=== PATIENT | female | born 1935 | race Caucasian/White ===

== ENCOUNTER → 2020-03-07 | Outpatient (CLI) | payer MEDICARE ==
[~2020-03-07] MED LIST: COUMADIN 22.5 MG/TAB PO; COUMADIN 3MG3 MG/TAB PO; KLOR-CON SPRIN10 MEQ PO; LANOXIN 0.25M0.25 MG PO; LASIX 20MG TABL20 MG PO; LOFIBRA160 MG PO; LOPRESSOR 225 MG/TAB PO; LOPRESSOR 550 MG/TAB PO; OMNICEF 300MG300 MG PO; TYLENOL 325MG325 MG PO
[2020-03-07 16:36] LABS: COLLECTION METHOD CLEAN CATCH
[2020-03-07 17:03] LABS: BUDDING YEAST Present /hpf; MUCOUS Present /lpf; PH 6 (5-8); SQUAMOUS EPITHELIAL 0-2 /hpf; URINE APPEARANCE Cloudy; URINE BACTERIA Moderate /hpf; URINE BILIRUBIN Negative (NEGATIVE); URINE BLOOD 1+ (NEGATIVE); URINE CALCIUM OXALATE CRYSTAL Present /hpf; URINE COLOR Amber; URINE GLUCOSE Negative (NEGATIVE); URINE KETONE Negative (NEGATIVE); URINE LEUKOCYTE ESTERASE 3+ (NEGATIVE); URINE NITRATE Negative (NEGATIVE); URINE PROTEIN(semi-quant) 1+ (NEGATIVE); URINE RBC 20-50 /hpf; URINE UROBILINOGEN >=4.0 mg/dL (NEGATIVE)
== END ==
LOC: ZCOL.LAB 15:59
PROVIDERS: Emergency Medicine
DX: N39.0 Urinary tract infection, site not specified (principal)

== ENCOUNTER → 2020-05-15 | Outpatient (CLI) | payer MEDICARE ==
[2020-05-15 13:19] LABS: COLLECTION METHOD CATHETER
[2020-05-15 13:32] LABS: MUCOUS Present /lpf; PH 7 (5-8); SQUAMOUS EPITHELIAL None Seen /hpf; URINE APPEARANCE Turbid; URINE BACTERIA Rare /hpf; URINE BILIRUBIN Negative (NEGATIVE); URINE BLOOD 1+ (NEGATIVE); URINE CALCIUM OXALATE CRYSTAL Present /hpf; URINE COLOR Yellow; URINE GLUCOSE Negative (NEGATIVE); URINE KETONE Negative (NEGATIVE); URINE LEUKOCYTE ESTERASE 1+ (NEGATIVE); URINE NITRATE Positive (NEGATIVE); URINE PROTEIN(semi-quant) Negative (NEGATIVE); URINE UROBILINOGEN Negative (NEGATIVE)
== END ==
LOC: ZCOL.LAB 13:10
PROVIDERS: Family Medicine
DX: N39.0 Urinary tract infection, site not specified (principal)

== ENCOUNTER → 2020-06-18 | Outpatient (CLI) | payer MEDICARE ==
[2020-06-18 09:59] LABS: BASO % 0.2 % (0.0-2.0); EOS # 0.4 (0.0-0.7); EOS % 4.1 % (0-4.0); GRAN # 5.4 (1.4-6.5); GRAN % 58.8 % (42.2-75.2); HEMATOCRIT 40.1 % (37.0-47.0); HEMOGLOBIN 12.9 g/dl (12.5-16.0); LYMPH # 2.3 (1.2-3.4); LYMPH % 25.1 % (20.0-51.0); MEAN CELL VOLUME 97 fl (80.0-100.0); MEAN CORPUSCULAR HEMOGLOBIN 31 pg (27.0-31.0); MEAN CORPUSCULAR HGB CONC 32 g/dl (33.0-37.0); MEAN PLATELET VOLUME 10.8 fl (7.4-10.4); MONO # 1.1 (0.1-0.6); MONO % 11.5 % (1.7-9.3); PLATELET COUNT 270 K/mm3 (130-400); RED BLOOD COUNT 4.13 M/mm3 (4.10-5.30); REDCELL DISTRIBUTION WIDTH-CV 13.8 % (11.5-14.5)
== END ==
LOC: ZCOL.LAB 09:44
PROVIDERS: Family Medicine
DX: I69.354 Hemiplegia and hemiparesis following cerebral infarction affecting left non-dominant side (principal); I48.20 Chronic atrial fibrillation, unspecified

== ENCOUNTER → 2020-06-26 | Outpatient (CLI) | payer MEDICARE ==
[2020-06-26 21:48] LABS: COLLECTION METHOD CATHETER
[2020-06-26 22:06] LABS: MUCOUS Present /lpf; PH 7 (5-8); URINE APPEARANCE Turbid; URINE BACTERIA Rare /hpf; URINE BILIRUBIN Negative (NEGATIVE); URINE BLOOD 2+ (NEGATIVE); URINE COLOR Amber; URINE GLUCOSE Negative (NEGATIVE); URINE KETONE Negative (NEGATIVE); URINE LEUKOCYTE ESTERASE 2+ (NEGATIVE); URINE NITRATE Negative (NEGATIVE); URINE PROTEIN(semi-quant) 2+ (NEGATIVE); URINE RBC >50 /hpf; URINE UROBILINOGEN Negative (NEGATIVE)
== END ==
LOC: ZCOL.LAB 20:04
PROVIDERS: Family Medicine
DX: N39.0 Urinary tract infection, site not specified (principal)

== ENCOUNTER → 2020-10-08 | Outpatient (CLI) | payer MEDICARE ==
[2020-10-08 14:13] LABS: CALCIUM 9.4 mg/dL (8.4-10.2); CREATININE, serum 0.47 (0.52-1.25); POTASSIUM 4.3 mmol/L (3.4-5.0)
== END ==
LOC: ZCOL.LAB 14:02
PROVIDERS: Family Medicine
DX: I69.354 Hemiplegia and hemiparesis following cerebral infarction affecting left non-dominant side (principal)

== ENCOUNTER → 2020-12-25 | Outpatient (REF) | LOC: ZCOL.LAB 03:14 | DX: Z01.89 Encounter for other specified special examinations (principal) ==

== ENCOUNTER 2021-01-03 21:17 | Inpatient (IN) | payer MEDICARE ==
[~2021-01-03] VITALS: Ht 182.9 cm; Wt 72.7 kg
[~2021-01-03 21:17] MED LIST changes: -KLOR-CON SPRIN10 MEQ PO; +KLOR-CON SPRINK8 MEQ PO
[2021-01-03 22:05] LABS: HEMOGLOBIN 11.6 g/dl (12.5-16.0); MEAN CELL VOLUME 99 fl (80.0-100.0); MEAN CORPUSCULAR HEMOGLOBIN 33 pg (27.0-31.0); MEAN CORPUSCULAR HGB CONC 33 g/dl (33.0-37.0); MEAN PLATELET VOLUME 10.9 fl (7.4-10.4); PLATELET COUNT 362 K/mm3 (130-400); RED BLOOD COUNT 3.52 M/mm3 (4.10-5.30); REDCELL DISTRIBUTION WIDTH-CV 15.4 % (11.5-14.5)
[2021-01-03 22:08] LABS: HEMATOCRIT 34.9 % (37.0-47.0)
[2021-01-03 22:10] LABS: ALANINE AMINOTRANSFERASE 83 U/L (4-34); ALBUMIN 2.8 gm/dL (3.5-5.0); ALKALINE PHOSPHATASE 70 U/L (50-136); ANION GAP 4 mmol/L (7-16); AST,SGOT 33 U/L (15-37); BILIRUBIN,TOTAL 2.5 mg/dL (0.0-1.0); BLOOD UREA NITROGEN 14 mg/dL (7-17); CARBON DIOXIDE 30 mmol/L (22-30); CHLORIDE 97 mmol/L (98-107); GLUCOSE 90 mg/dL (74-106); POTASSIUM 4.8 mmol/L (3.4-5.0); SODIUM 132 mmol/L (137-145); TOTAL PROTEIN 6.5 gm/dL (6.4-8.2)
[2021-01-03 22:22] LABS: TROPONIN-I < 0.012 ng/mL (0.000-0.035)
[2021-01-03 22:27] LABS: ANISOCYTOSIS 1+; BAND 5 % (0-10); HYPOCHROMIA 1+; LYMPHOCYTE 6 % (20.0-51.0); NEUTROPHILS 80 % (42.0-75.2); POIKILOCYTOSIS 1+
[2021-01-03 22:28] LABS: OVALOCYTES 1+; PLATELET ESTIMATE NORMAL (NORMAL); STOMATOCYTE 1+
[2021-01-03] MEDS ORDERED: EFFEXOR XR37.5 MG/CA PO (23:06)
[2021-01-03] MEDS ORDERED: ONE-A-DAY ESSE1 EACH PO (23:07)
[2021-01-03] MEDS ORDERED: REMERON 15M15 MG/TA1 PO (23:09)
[2021-01-03] MEDS ORDERED: XARELTO15 MG PO (23:10)
[2021-01-03] MEDS ORDERED: BACTRIM DS 8001 TAB PO (23:10)
[2021-01-03] MEDS ORDERED: HIPREX PO (23:11)
[2021-01-03 23:16] LABS: COLLECTION METHOD CATHETER
[2021-01-03 23:24] LABS: AMORPHOUS CRYSTAL Present /uL; MUCOUS Present /lpf; PH 7 (5-8); URINE APPEARANCE Cloudy; URINE BACTERIA Moderate /hpf; URINE BILIRUBIN Negative (NEGATIVE); URINE BLOOD Negative (NEGATIVE); URINE COLOR Amber; URINE GLUCOSE Negative (NEGATIVE); URINE KETONE Negative (NEGATIVE); URINE LEUKOCYTE ESTERASE 2+ (NEGATIVE); URINE NITRATE Negative (NEGATIVE); URINE PROTEIN(semi-quant) 1+ (NEGATIVE); URINE UROBILINOGEN >=4.0 mg/dL (NEGATIVE)
--- NOTE | 2021-01-04 00:48 | NUR ---
RECEIVED REPORT FROM ED RNGEMA. WAITING FOR ARRIVAL TO ROOM 308.
[2021-01-04 01:32] VITALS: BP 103/62; PULSE 101; TEMP 99
--- NOTE | 2021-01-04 01:35 | NUR ---
ADMIT TO ROOM 308 FROM ER VIA CART/ACCOMPANIED BY PCT. PATIENT DOES NOT ANSWER QUESTIONS REGARDING NAME/AGE/. DOES NOT FOLLOW COMMANDS AT THIS TIME. OBSERVED NO VOLUNTARY MOVEMENT OF BLE OR LUE. OBSERVED SMALL AMOUNT SWELLING TO LEFT HAND. ON ROOM AIR. VS TAKEN, SEE [facility] FOR VS RESULTS. ALAMO TO DD IN PLACE WITH CLEAR ORANGE COLORED URINE OUTPUT OBSERVED. OBSERVED SMALL DIME SIZE SEMI CIRCULAR SHAPED OPEN AREA TO COCCYX AREA WITH BLANCHING OBSERVED TO SURROUNDING TISSUE OF SKIN WOUND, OBSERVED DEEPA SOLES OF FEET VERY DRY WITH SKIN INTACT. EGG CRATE OVERLAY ON BED PRIOR TO PATIENT TRANSFERED FROM ER CART TO ROOM BED. OBSERVED PATIENT REQUIRED MAX ASSIST X2 WITH TURNS FROM SIDE TO SIDE AND WHEN REPOSITIONED UP IN BED. BREATHING OBSERVED NONLABORED AND EVEN. OBSERVED SCANT AMOUNT OF BLE NON PITTING SWELLING. DEEPA HEELS ELEVATED AT THIS THIS TIME.
--- NOTE | 2021-01-04 01:48 | NUR ---
OBSERVED IVF INFUSING PER GRAVITY TO RAC IV SITE WITH BLOODY DRAINAGE TO IV SITE UNDER TEGADERM IV DRSG.
--- NOTE | 2021-01-04 02:26 | NUR ---
IVF RATE FROM 250 ML/HR SET BY ER, CHANGED TO 100 ML/HR PER PROVIDER ORDER.
[2021-01-04 04:07] VITALS: BP 92/50; PULSE 103; TEMP 99.3
--- NOTE | 2021-01-04 04:27 | NUR ---
CERTIFIED LOW VISION THERAPIST HOSP PROVIDER INFORMED OF RECENT VS AND PATIENT GOING FOR CT HEAD AT THIS TIME. NO NEW ORDERS ENTERED AT TIME OF CALL TO PROVIDER.
--- NOTE | 2021-01-04 04:52 | NUR ---
PATIENT BACK IN ROOM FROM RADIOLOGY.
--- NOTE | 2021-01-04 05:21 | NUR ---
INSTRUCTED BY HOSP PROVIDER, SPOKE WITH ME STAFF TO HAVE PATIENT'S MED LIST FAXED TO [facility] TO CONFIRM PATIENT IS CURRENTLY TAKING. WAITING ON FAX.
[2021-01-04] MEDS ORDERED: DULCOLAX S10 MG/SUPP RC (05:44)
[2021-01-04] MEDS ORDERED: CORRECTIVE LAXAT5 MG PO (05:44)
--- NOTE | 2021-01-04 06:02 | NUR ---
SPOKE WITH PATIENT'S DAUGHTER, NILAY YEBOAH/MARC TO OBTAIN PHONE CONSENT FOR ABD/PELV CT W CONTRAST AND PE CHEST WITH CONTRAST TO BE PERFORMED ON PATIENT. PHONE CONSENT GIVEN FROM DAUGHTER, NILAY YEBOAH, WITH REYNALDO DESAI SECOND WITNESS, SEE ALSO CONSENT FORM. ALSO CONFIRMED PATIENT'S DNR STATUS TO CONTINUE DURING HOSPITAL STAY, AT [place] ([facility]). INFORMED HOSP PROVIDER OF PERMISSION OBTAINED AND OF CONTINUATION OF DNR STATUS DURING HOSP STAY.
--- NOTE | 2021-01-04 06:24 | NUR ---
RADIOLOGY CALLED, REPORTING IV SITE NOT FUNCTIONING WELL, OBSERVED BLOOD BACKED UP IN IV LOOP, REPLACED IV LOOP EXTENSION, FLUSHED WITH SALINE WITH NO PROBLEMS AND SECURED WITH SMALL IV DRSG.
[2021-01-04 07:15] VITALS: BP 109/45; PULSE 103; TEMP 99.4
--- NOTE | 2021-01-04 07:50 | NUR ---
CHANGE OF SHIFT REPORT GIVEN TO DAY SHIFT NURSE
--- NOTE | 2021-01-04 08:26 | NUR ---
Pt napping upon entry, combative and hitting, attempted to give Pt medications, refused. Shift assessments complete, left Pt call light in reach, bed in lowest position
[2021-01-04 08:56] LABS: HEMOGLOBIN 11.4 g/dl (12.5-16.0); MEAN CELL VOLUME 100 fl (80.0-100.0); MEAN CORPUSCULAR HEMOGLOBIN 33 pg (27.0-31.0); MEAN CORPUSCULAR HGB CONC 33 g/dl (33.0-37.0); MEAN PLATELET VOLUME 10.9 fl (7.4-10.4); PLATELET COUNT 331 K/mm3 (130-400); RED BLOOD COUNT 3.44 M/mm3 (4.10-5.30); REDCELL DISTRIBUTION WIDTH-CV 15.4 % (11.5-14.5)
[2021-01-04 09:08] LABS: HEMATOCRIT 34.4 % (37.0-47.0)
[2021-01-04 09:10] LABS: ALBUMIN 2.5 gm/dL (3.5-5.0); BILIRUBIN,TOTAL 2.5 mg/dL (0.0-1.0); CALCIUM 7.8 mg/dL (8.4-10.2); CREATININE, serum 0.6 (0.52-1.25); POTASSIUM 4.1 mmol/L (3.4-5.0)
[2021-01-04 09:39] LABS: EOSINOPHIL 2 % (0-4); LYMPHOCYTE 6 % (20.0-51.0); NEUTROPHILS 89 % (42.0-75.2); PLATELET ESTIMATE NORMAL (NORMAL)
--- NOTE | 2021-01-04 11:27 | NUR ---
ROBERT met with patient and Legal Guardian and MARC Gonzalez (dtr). Alternate contact is Riccardo Cali . Patient rsides at [facility] and uses a wheelchair for mobility and does not walk. Patient is reports to have PCP Dr. James and medications are taken care of through [facility]. Patient deoes not have any other DME use. Patient is reported to not like to talk. Transportation is provided by the care facility. Will continue to support for DC needs if any arise.
[2021-01-04 11:36] VITALS: BP 112/65; PULSE 105; TEMP 99.9
[2021-01-04 16:15] VITALS: BP 95/53; PULSE 81; TEMP 98.1
[2021-01-04 19:17] VITALS: BP 92/51; PULSE 93; TEMP 99.1
--- NOTE | 2021-01-04 20:16 | NUR ---
PATIENT WAS RECEIVED IN BED SLEEPY,DUE MEDS GIVEN,ASSESSMENT DONE.IVF DRIPPING WELL,ON RA.DENIES PAIN.NO OTHER NEEDS AT THIS TIME
[2021-01-05 00:50] VITALS: BP 113/69; PULSE 74; TEMP 97.3
[2021-01-05 04:55] VITALS: BP 130/64; PULSE 105; TEMP 97.9
--- NOTE | 2021-01-05 04:56 | NUR ---
PATIENT HAS BEEN UP MOST OF THE TIME.DENIES PAIN.NO NEW DEVELOPMENT NEUROLOGICALLY.PT HAS A ALAMO IN PLACE,ON IVFS.DENIES PAIN.NO OTHER NEEDS AT THIS TIME.
--- NOTE | 2021-01-05 05:45 | NUR ---
PATIENT BG WAS 64L APPLE JUICE GIVEN.PATIENT HAS NO SIGNS OF HYPOGLYCEMIA.
--- NOTE | 2021-01-05 05:49 | NUR ---
BLOOD SUGAR RECHECK WAS 80
[2021-01-05 06:42] LABS: HEMATOCRIT 37.5 % (37.0-47.0); HEMOGLOBIN 12.2 g/dl (12.5-16.0); MEAN CELL VOLUME 101 fl (80.0-100.0); MEAN CORPUSCULAR HEMOGLOBIN 33 pg (27.0-31.0); MEAN CORPUSCULAR HGB CONC 33 g/dl (33.0-37.0); MEAN PLATELET VOLUME 10.5 fl (7.4-10.4); PLATELET COUNT 403 K/mm3 (130-400); REDCELL DISTRIBUTION WIDTH-CV 15.7 % (11.5-14.5)
[2021-01-05 06:54] LABS: ALBUMIN 2.7 gm/dL (3.5-5.0); BILIRUBIN,TOTAL 2.2 mg/dL (0.0-1.0); CREATININE, serum 0.58 (0.52-1.25); MAGNESIUM 1.9 mg/dL (1.6-2.3); POTASSIUM 3.7 mmol/L (3.4-5.0); TOTAL PROTEIN 6.2 gm/dL (6.4-8.2)
[2021-01-05 07:28] VITALS: BP 113/48; PULSE 85; TEMP 97.8
[2021-01-05 08:01] LABS: EOSINOPHIL 2 % (0-4); LYMPHOCYTE 2 % (20.0-51.0); MYELOCYTE 1 % (0-0); NEUTROPHILS 89 % (42.0-75.2); PLATELET ESTIMATE INCREASED (NORMAL)
[2021-01-05 08:02] LABS: HYPOCHROMIA 2+
--- NOTE | 2021-01-05 10:17 | NUR ---
Pt sleeping upon entry, hard to wake, medications not given Pt. Assessment completed as much as possible and documented, per family request Pt left to sleep.
[2021-01-05 11:30] VITALS: BP 109/55; PULSE 94; TEMP 98.9
[2021-01-05 16:28] VITALS: BP 117/60; PULSE 76; TEMP 97.4
--- NOTE | 2021-01-05 18:00 | NUR ---
Pt sleeping today, has been very hard to wake, will open eyes when prompted then falls back asleep quickly. Pt not noticably in pain. VS have remained stable.
[2021-01-05 19:13] VITALS: BP 119/57; PULSE 83; TEMP 97.7
--- NOTE | 2021-01-05 19:54 | NUR ---
Patient sleeping/snoring upon enter the room. Patient opens eyes with verbal and tactile stimulation, but falls back asleep immediately. Unable to give meds due to sleepiness. 5% Dextrose and 0.9% NS IVF running at 75ml/hr. Patient appears comfortable. No s/s of pain or discomfort. Call light within reach. Will continue to monitor.
[2021-01-06 00:38] VITALS: BP 143/57; PULSE 91; TEMP 97.6
[2021-01-06 04:22] VITALS: BP 92/46; PULSE 82; TEMP 98.2
[2021-01-06 05:02] VITALS: BP 101/47
--- NOTE | 2021-01-06 06:03 | NUR ---
Patient very drowsy and lethargic. Has been sleeping all night. Very hard to awake. Hasn't been eating or drinking all night. Call light within reach. Will give report to day shift nurse.
[2021-01-06 06:26] LABS: HEMATOCRIT 37.4 % (37.0-47.0); HEMOGLOBIN 12.4 g/dl (12.5-16.0); MEAN CELL VOLUME 100 fl (80.0-100.0); MEAN CORPUSCULAR HEMOGLOBIN 33 pg (27.0-31.0); MEAN CORPUSCULAR HGB CONC 33 g/dl (33.0-37.0); MEAN PLATELET VOLUME 10.1 fl (7.4-10.4); PLATELET COUNT 460 K/mm3 (130-400); RED BLOOD COUNT 3.73 M/mm3 (4.10-5.30); REDCELL DISTRIBUTION WIDTH-CV 15.8 % (11.5-14.5)
[2021-01-06 06:38] LABS: ALBUMIN 2.3 gm/dL (3.5-5.0); BILIRUBIN,TOTAL 1.5 mg/dL (0.0-1.0); CALCIUM 7.9 mg/dL (8.4-10.2); CREATININE, serum 0.49 (0.52-1.25); POTASSIUM 3.3 mmol/L (3.4-5.0)
[2021-01-06 07:20] LABS: EOSINOPHIL 3 % (0-4); LYMPHOCYTE 8 % (20.0-51.0); METAMYELOCYTE 3 % (0-0); MYELOCYTE 1 % (0-0); NEUTROPHILS 82 % (42.0-75.2)
[2021-01-06 07:21] LABS: PLATELET ESTIMATE INCREASED (NORMAL)
[2021-01-06 07:22] LABS: HYPOCHROMIA 1+
[2021-01-06 07:23] LABS: SPHEROCYTE 1+
--- NOTE | 2021-01-06 08:30 | NUR ---
PT DOES NOT RESPOND TO VERBAL STIMULI, WILL YELL OUT "LEAVE ME ALONE" WHEN TOUCHED; DOES NOT INTERACT BEYOND THIS. UNABLE TO GIVE ORAL MEDICATIONS D/T PT LOC.
[2021-01-06 08:31] VITALS: BP 122/57; PULSE 71; TEMP 97.3
--- NOTE | 2021-01-06 10:58 | NUR ---
I met with daughter and guardian Maria Ines Ramirez, this morning along with Dr Woodruff. Maria Ines reports that her mother has been declining at [facility] over the last few months. She is currently not eating or drinking, not taking her oral medications, and will only occasionally give a simiple verbal response. We will have a family meeting call this afternoon after 2pm to talk with co-guardian, Aneudy Cali, to finalize goals of care. We did talk about the concern that Kisha is not observationally improving in her status, despite appropriate antibiotics, IV fluids, and gentle support. Pt is a DNR at this time and was on hospice about 1 year ago when she had her stroke when she was not expected to live even a week. She did spend some time after coming off hospice at [facility] here but was resistant to therapy and eventually was placed at [facility] where she has remained until now. Daughter states that she and her brother must make this decision together but that she has requested we contact [facility] to express interest in their facility and will reach a final decision after the family meeting today. Referral was sent to [facility] and voicemail left for Helen admission screener. Support was provided.
--- NOTE | 2021-01-06 12:27 | NUR ---
PT NOT FOLLOWING COMMANDS FOR NEURO CHECK BUT PT GRABBED MY ARM TO SHOVE ME AWAY WHEN ASKING TO TAVERN CAR ATTENDANT FINGERS. TAVERN CAR ATTENDANT STRONG. PT MOVES ARMS INDEPENDENTLY ON BED BUT NOT TO COMMANDS, PT ALERT AND SAYING "DON'T DO ANYTHING TO ME, LEAVE ME ALONE".
--- NOTE | 2021-01-06 12:30 | NUR ---
PT REFUSED BLOOD SUGAR, THREATENED TO BE COMBATIVE. PT ALSO REFUSED PULSE OX AND THREW IT AT TECH
[2021-01-06 13:01] VITALS: BP 119/78; TEMP 97.7
--- NOTE | 2021-01-06 13:25 | NUR ---
A palliative care consult was ordered. ROBERT staffed with palliative care nurse, Jade. The patient's daughter, Maria Ines Gonzalez and son, Aneudy Cali, are the patient's co-guardians and co-conservators. Maria Ines is in the patient's room. Maria Ines is leaning towards hospice at the [facility], but no decisions have been made until a 1400 family meeting with the patient's son, Aneudy, on speaker phone. Jade contacted and faxed a referral to Helen at the [facility]. Helen is able to take the patient tomorrow, if the family does want to pursue hospice. The patient resides at [facility]. ROBERT notified and faxed updates to Alexis at [facility]. Alexis emailed ROBERT the documents they have on file for the guardianship. ROBERT placed the documents in the patient's chart. ROBERT met with the patient's daughter, Maria Ines, to address the guardianship. Maria Ines reports that she has more guardianship paperwork she will email to ROBERT. She states that they may also have a DPOA-HC for the patient and will try and find it and email to ROBERT. ROBERT received the guardianship paperwork, via email. ROBERT placed it in the patient's chart.
--- NOTE | 2021-01-06 15:36 | NUR ---
Family meeting held with Dr Woodruff, Whitney Dickens. social service agency director, Maria Ines Ramirez, and Jade Contreras RN in person and with Aneudy Cali, son, by phone. Dr Woodruff discussed Kisha's clinical status and goals of care were discussed with both Maria Ines and Aneudy agreeing that hospice care at [facility] is what they believe that their mother would want. This is what Dr Woodruff would feel is quite appropriate in this circumstance. Verification of guardianship ability to make this decision was made by Whitney Amaya with the Guardianship Board. We will plan on transfer to [facility] at 11am tomorrow after a discharge covid test is reported. This was also discussed with Helen From [facility] and she will reach out to family. Comfort quilt was provided to patient/daughter with explanation.
--- NOTE | 2021-01-06 15:44 | NUR ---
NIKI INFORMED ME OF PT STATUS CHANGED TO COMFORT CARE. CALLED MARY FRAZIER IF PT WAS STILL CONTINUING VITALS, BS CHECKS, ANTIBIOTICS AND POTASSIUM. SHE CONFIRMED WE WERE CONTINUING ANTIBIOTICS AND DOING BS AND VITALS Q12H. TALKED TO DR CUELLAR ABOUT POTASSIUM AND HE SAID WE COULD DC.
--- NOTE | 2021-01-06 15:54 | NUR ---
ROBERT contacted Brit at [facility] to inquire if the co-guardians would need to go to court to place the patient on comfort measures. Brit reports that as long as a doctor orders it, they would not have to go to court. ROBERT attended the family meeting with the patient's daughter/co-guardian, Maria Ines. The patient's son/co-guardian, Tony, was also on speaker phone. Also present was the hospitalist and palliative care nurse, Jade. The hospitalist discussed the patient's prognosis and hospice in the home, correction, and hospice house. Maria Ines and Tony would like to pursue hospice at the hospice house. Jade informed them how the hospice house can take the patient tomorrow morning. Maria Ines and Tony were agreeable to this. Jade planned on notifying Helen at the hospice house of the family's decision. ROBERT updated Alexis at [facility].
--- NOTE | 2021-01-06 18:04 | NUR ---
Patient sleeping in bed, resting after treatment for pain. Compound Rx ordered for patient delivered and pharmacy notified to make patient label for inpat scanning purposes. Patient has been encouraged to eat and meal trays have been ordered, however she sends them back as they are delivered. She states she get nauseated with eating. Ondansatron given earlier for anticipatory nausea, however patient only ate peanut butter crackers and orange juice. No needs or c/o at this time.
--- NOTE | 2021-01-06 18:13 | NUR ---
Patient resting soundly in bed, she had time of alertness this afternoon for appox 3 hrs while daughter was here. She ate ice cream but refused any lunch. Consult had between family and palliative care with decision to transfer patient to hospice house on 01/07/21. Modified care ordered noted. Patient has n/c at this time.
--- NOTE | 2021-01-06 19:05 | NUR ---
Received report from Bebe. Patient asleep. Bed alarm on.
[2021-01-06 20:46] VITALS: BP 125/65; PULSE 90; TEMP 97.8
--- NOTE | 2021-01-07 05:28 | NUR ---
Patient had been mostly sleepy. She would wake up if I try to fix her tele leads and then she would be aggressive by trying to hit me and would say "get out of here".
[2021-01-07 07:54] VITALS: BP 131/65; PULSE 85; TEMP 97.7
[2021-01-07] MEDS ORDERED: ROXANOL 20MG20 MG/ML SL (08:42)
[2021-01-07] MEDS ORDERED: ATIVAN 0.50.5 MG/TAB PO (08:44)
[2021-01-07] MEDS ORDERED: PHENERGAN25 MG RC (08:44)
[2021-01-07] MEDS ORDERED: REFRESH TEARS 330 ML OP (08:46)
[2021-01-07] MEDS ORDERED: TRANSDERM-0.5 MG/21 TD (08:48)
--- NOTE | 2021-01-07 08:51 | NUR ---
ALERT ON ENTERING ROOM, NONVERBAL. PATIENT RESPIRATORY PATTERN NOTED TO HAVE PERIODS OF APNEA 5-7 SECONDS IN LENGTH, HOWEVER PATTER DOES NOT APPEAR TO BE SOUMYA LR. ULCER ON COCCYX DRESSED. mOUTH CARE GIVEN. WILL TRANSFER TO HOSPICE HOUSE ON 01/07/21.
--- NOTE | 2021-01-07 08:58 | NUR ---
report called to nurse at [facility].
[2021-01-07 09:39] VITALS: BP 131/65; PULSE 85; TEMP 97.7
--- NOTE | 2021-01-07 10:04 | NUR ---
LEAKING FROM CATHETER NOTED; CATHETER FLUSHED UP AND NOTED TO BE PATENT. EASILY ADVANCES UP AND EASILY ADJUSTED. 3ML ADDED TO BALLOON TO PREVENT LEAKAGE.
--- NOTE | 2021-01-07 10:26 | NUR ---
Pt's daughter has just arrived to the hospital. pt has been awake and looking around but offers no verbal responses. Plan for discharge to [facility] today for 1130 admission there. Support provided
--- NOTE | 2021-01-07 10:43 | NUR ---
ROBERT contacted Nadeem at [facility]. Nadeem reports that they are able to take the patient today and that they just need the patient's COVID results and guardianship paperwork. ROBERT faxed both documents to [facility]. Nadeem reports that a 1130 [employer]els[employer] picker would work for them. ROBERT contacted and updated the patient's daughter, Maria Ines. She was agreeable to this. The patient is to discharge today, 01/07, to the [facility]. Transportation was scheduled at 1130, via [facility]. ROBERT informed the patient's RN and daughter, Maria Ines, of the time. They were both agreeable to the time. ROBERT also presented and read the EMS transfer consent form and IM outloud to Maria Ines. Maria Ines verbalized understanding and signed both forms. ROBERT provided her with a copy of the IM form. No additional needs at this time.
--- NOTE | 2021-01-07 11:45 | NUR ---
Transfer to hospice house via ambulance, daughter in attendance. All personal items sent with family.
== END 2021-01-07 11:45 | disposition hospice, inpatient (51) | DRG 698 ==
LOC: COL.ER 21:17 → MEDICAL 01-04 00:36
PROVIDERS: Internal Medicine; Nurse Practitioner Family; Physician Assistant; ADMIT Hospitalist
DX: T83.511A Infection and inflammatory reaction due to indwelling urethral catheter, initial encounter (principal); G93.41 Metabolic encephalopathy; A41.9 Sepsis, unspecified organism; R65.20 Severe sepsis without septic shock; I48.20 Chronic atrial fibrillation, unspecified; I69.354 Hemiplegia and hemiparesis following cerebral infarction affecting left non-dominant side; Y83.8 Other surgical procedures as the cause of abnormal reaction of the patient, or of later complication, without mention of misadventure at the time of the procedure; F32.9 Major depressive disorder, single episode, unspecified; D64.9 Anemia, unspecified; I48.91 Unspecified atrial fibrillation; E11.649 Type 2 diabetes mellitus with hypoglycemia without coma; E11.22 Type 2 diabetes mellitus with diabetic chronic kidney disease; N18.9 Chronic kidney disease, unspecified; E78.5 Hyperlipidemia, unspecified; E87.6 Hypokalemia; R33.9 Retention of urine, unspecified; R74.01 Elevation of levels of liver transaminase levels; Z20.822 Contact with and (suspected) exposure to COVID-19; E87.8 Other disorders of electrolyte and fluid balance, not elsewhere classified; Z66 Do not resuscitate; R09.02 Hypoxemia
CPT/HCPCS: 99222-AI; 99233-AI; 99239; A4314; J2185; J2543; J3480; J7030; J7042